=== PATIENT | female | born 1940 | race Caucasian/White ===

== ENCOUNTER → 2018-03-04 09:51 | Outpatient (CLI) | payer MEDICARE, OTHER, SELFPAY ==
[2018-03-04 12:03] LABS: Hemoglobin A1C% w Est Avg Glu 7.3 % (4.0-6.0)
== END ==
PROVIDERS: Family Provider Orthopaedic Surgery; Visit Provider Orthopaedic Surgery
DX: M17.11 Unilateral primary osteoarthritis, right knee (principal)
CPT/HCPCS: 36415; 83036